=== PATIENT | female | born 1985 | race Two or more races ===

== ENCOUNTER 2021-03-03 10:38 | Emergency (ER) | payer OTHER ==
[~2021-03-03] VITALS: Ht 167.6 cm; Wt 57.6 kg
--- NOTE | 2021-03-03 10:45 | NUR ---
Midsternal chest pain with numbness to L arm and feeling anxious since am. Rates pain 5/10. Alert and oriented x4. In room air and denies SOb. Respiration regular and unlabored. Attached to the monitor. Warm blanket provided for comfort. Will continue to monitor the patient.
--- NOTE | 2021-03-03 11:06 | NUR ---
dr lassiter at bedside for eval.
--- NOTE | 2021-03-03 11:17 | NUR ---
radiology at bedside for chest xray.
[2021-03-03] MEDS ORDERED: LORAZEPAM 0.5 MG TABLET ONE (11:18)
--- NOTE | 2021-03-03 11:23 | NUR ---
[facility] at bedside for blood draw.
[2021-03-03 11:28] LABS: BASOPHILS % (AUTO) 0.9 % (0.0-2.0); EOSINOPHILS % (AUTO) 1.6 % (0.0-6.0); HEMATOCRIT 39 % (33-45); HEMOGLOBIN 12.9 g/dL (11.5-14.8); LYMPHOCYTES # (AUTO) 1.4 K/uL (0.8-4.8); LYMPHOCYTES % (AUTO) 27.3 % (20.0-44.0); MEAN CORPUSCULAR HGB CONC 33 g/dl (31.0-36.0); MEAN CORPUSCULAR VOLUME 88 fL (82-100); MONOCYTES # (AUTO) 0.3 K/uL (0.1-1.30); MONOCYTES % (AUTO) 6.7 % (2.0-12.0); NEUTROPHILS # (AUTO) 3.2 K/uL (1.8-8.9); NEUTROPHILS % (AUTO) 63.5 % (43.0-81.0); PLATELET COUNT (AUTO) 208 K/uL (150-450); RED BLOOD CELL COUNT(AUTO) 4.41 MIL/uL (4.0-5.2)
[2021-03-03] MEDS ORDERED: LORAZEPAM 1 MG TABLET PO ONE (11:30)
[2021-03-03 11:36] LABS: CALCIUM, SERUM 9.4 mg/dL (8.5-10.1); CARBON DIOXIDE 26 mmol/L (21-32); CHLORIDE 103 mmol/L (98-107); CREATININE 0.7 mg/dL (0.6-1.3); GLUCOSE 100 mg/dL (74-106); POTASSIUM 3.7 mmol/L (3.5-5.1); SODIUM SERUM 138 mmol/L (136-145); UREA NITROGEN, BLOOD 12 mg/dL (7-18)
[2021-03-03 12:10] VITALS: BP 131/72
--- NOTE | 2021-03-03 12:10 | NUR ---
Patient discharged to home in stable condition. Written and verbal after care instructions given. Patient verbalizes understanding of instruction.
== END 2021-03-03 12:10 | disposition home or self-care (01) ==
LOC: ER 10:41
DX: F41.9 Anxiety disorder, unspecified (principal); R07.89 Other chest pain
CPT/HCPCS: 36415; 71045-TC; 80048-TC; 84484-TC; 85025-TC

== ENCOUNTER 2021-03-05 10:31 | Emergency (ER) | payer OTHER ==
[~2021-03-05] VITALS: Ht 160 cm; Wt 56.7 kg
--- NOTE | 2021-03-05 10:47 | NUR ---
C/O UPPER ABD PAIN SINCE YESTERDAY. -N/V/D. PT AAOX4, VSS. RR EVEN & UNLABORED. DENIES CP, SOB, DIZZINESS AT THIS TIME. AWAITING EVAL BY [facility]. WILL CONT TO MONITOR.
[2021-03-05] MEDS ORDERED: DICYCLOMINE HCL INJ 20 MG/2 ML AMPUL IM ONE ×2 (11:00→11:14)
[2021-03-05] MEDS ORDERED: MAG HYDROX/AL HYDROX/SIMETH 30 ML UDC PO ONE (11:00)
[2021-03-05] MEDS ORDERED: IV NS 0.9% 1,000 ML BAG IV ONE (11:00)
[2021-03-05] MEDS ORDERED: ONDANSETRON HCL/PF 4 MG/2 ML VIAL IVP ONE (11:00)
[2021-03-05] MEDS ORDERED: LIDOCAINE VISCOUS 2% UD 15 ML UDC MM ONE (11:00)
[2021-03-05] MEDS ORDERED: FAMOTIDINE/PF INJ 20 MG/2 ML VIAL IV ONE ×2 (11:00→11:15)
[2021-03-05] MEDS ORDERED: LIDOCAINE VISCOUS 2% UD 15 ML UDC ONE (11:14)
[2021-03-05] MEDS ORDERED: MAG HYDROX/AL HYDROX/SIMETH 30 ML UDC ONE (11:15)
[2021-03-05] MEDS ORDERED: ONDANSETRON HCL/PF 4 MG/2 ML VIAL ONE (11:15)
[2021-03-05 11:28] LABS: BASOPHILS % (AUTO) 0.4 % (0.0-2.0); EOSINOPHILS % (AUTO) 1.2 % (0.0-6.0); HEMATOCRIT 38 % (33-45); HEMOGLOBIN 12.6 g/dL (11.5-14.8); LYMPHOCYTES # (AUTO) 1.3 K/uL (0.8-4.8); MEAN CORPUSCULAR HGB CONC 33 g/dl (31.0-36.0); MEAN CORPUSCULAR VOLUME 89 fL (82-100); MONOCYTES # (AUTO) 0.4 K/uL (0.1-1.30); MONOCYTES % (AUTO) 7.8 % (2.0-12.0); NEUTROPHILS # (AUTO) 3.5 K/uL (1.8-8.9); NEUTROPHILS % (AUTO) 65.6 % (43.0-81.0); PLATELET COUNT (AUTO) 186 K/uL (150-450); RED BLOOD CELL COUNT(AUTO) 4.27 MIL/uL (4.0-5.2); WHITE BLOOD COUNT (AUTO) 5.3 K/uL (4.3-11.0)
--- NOTE | 2021-03-05 11:39 | NUR ---
MEDICATED PER ERMD ORDER, PT LAURA WELL. WILL CONT TO MONITOR.
[2021-03-05 11:56] LABS: CALCIUM, SERUM 8.5 mg/dL (8.5-10.1); CREATININE 0.7 mg/dL (0.6-1.3); POTASSIUM 3.9 mmol/L (3.5-5.1)
[2021-03-05 12:02] LABS: ALBUMIN 3.8 g/dL (3.4-5.0); BILIRUBIN,DIRECT 0.1 mg/dL (0.0-0.2); BILIRUBIN,TOTAL 0.5 mg/dL (0.2-1.0)
[2021-03-05] MEDS ORDERED: NITR100C6 PO (12:19)
[2021-03-05] MEDS ORDERED: ONDA4TAB5 PO (12:19)
[2021-03-05] MEDS ORDERED: FAMO-131 PO (12:19)
[2021-03-05] MEDS ORDERED: DICY10CA37 PO (12:31)
--- NOTE | 2021-03-05 12:45 | NUR ---
Patient discharged to home in stable condition. Written and verbal after care instructions given. Patient verbalizes understanding of instruction. IV removed. Catheter intact and site benign. Pressure and 4x4 applied to site. No bleeding noted.
[2021-03-05 12:46] VITALS: BP 118/87
[2021-03-05 12:58] LABS: BILIRUBIN,URINE NEGATIVE (NEGATIVE); COLOR,URINE YELLOW (YELLOW); LEUKOCYTE ESTERASE ,URINE NEGATIVE (NEGATIVE); NITRITE, URINE NEGATIVE (NEGATIVE); PROTEIN,URINE NEGATIVE (NEGATIVE); UGLUCOSE NEGATIVE (NEGATIVE); UROBILINOGEN,URINE 0.2 EU/dL (0.2)
[2021-03-05 13:17] LABS: BACTERIA,URINE Few /HPF (None Seen); SQUAMOUS EPITHELIAL CELL,UR Moderate /HPF (None Seen); WBC,URINE 0-2 /HPF (0-3)
== END 2021-03-05 12:46 | disposition home or self-care (01) ==
LOC: ER 10:31
DX: R10.13 Epigastric pain (principal); N39.0 Urinary tract infection, site not specified; F41.9 Anxiety disorder, unspecified; Z79.899 Other long term (current) drug therapy
CPT/HCPCS: 36415; 76705; 80048; 80076; 81001; 83690; 84703; 85025; 96361; 96372; 96374; 96375; 99285; J0500; J2405; J3490; J7030